=== PATIENT | male | born 1980 | race Two or more races ===

== ENCOUNTER 2023-08-17 14:52 | Emergency (ER) | payer MEDICAID, OTHER ==
[~2023-08-17] VITALS: Ht 182.9 cm; Wt 87.7 kg
[2023-08-17 15:53] VITALS: BP 145/90; PULSE 95; RESP 18; TEMP 98; O2SAT 99
[2023-08-17] MEDS ORDERED: HYDR-4798 PO (15:59)
== END 2023-08-17 16:06 | disposition home or self-care (01) ==
LOC: ER 14:52
DX: M25.512 Pain in left shoulder (principal); Z76.0 Encounter for issue of repeat prescription; Z79.899 Other long term (current) drug therapy

== ENCOUNTER 2024-04-07 11:29 | Emergency (ER) | payer MEDICAID ==
[~2024-04-07] VITALS: Ht 182.9 cm; Wt 78.9 kg
[~2024-04-07 11:29] MED LIST: HYDR-4798 PO
[2024-04-07 15:12] VITALS: BP 145/99; PULSE 104; RESP 16; TEMP 98.4; O2SAT 97
[2024-04-07] MEDS ORDERED: HYDR-4798 PO (15:15)
--- NOTE | 2024-04-07 15:15 | ED.PDOC ---
Musculoskeletal HPI Comments 43 year old male presents for left shoulder pain Currently takes norco prescribed by PCP Ran out. Requesting refill Next apt: Apr first week Chief Complaint: Upper Extremity Time Seen by MD: 14:41 Primary Care Provider: [facility] Allergies: Coded Allergies: NO KNOWN ALLERGIES (Unverified , 08/17/23) Home Meds Active Scripts Hydrocodone-Acetaminophen (Hydrocodone Bitartrate/AC 10-325 mg) 1 Tab Tab, 1 TAB PO QHSP PRN, #12 TAB Prov:JENNIFER SEARS 08/17/23 Mode of Arrival: Ambulatory Past Medical History Surgical History: Denies all surgeries Family History Family History: Unknown Social History Smoker: Non-Smoker Alcohol: Denies ETOH Use Drugs: Denies Drug Use Lives In: Home X-Ray, Labs, Meds, VS Vital Signs Date Time Temp Pulse Resp B/P (MAP) Pulse Ox O2 Delivery O2 Flow Rate FiO2 04/07/24 11:55 98.4 104 16 145/99 (114) 97 X-Ray, Labs, Meds, VS Comment OSITO ARTHUR Sold: 10/09/2023 Filled: 10/09/2023 HYDROCODONE BITARTRATE, ACETAMINOPHEN Refill 0 of 0 10-325 MG TAB Days: 30 Qty: 60 Daily: 20.0 Total: 600.0 MADELINE MYERS GEORGE: [id number] [id number] Pharmacy #: [id number] Serialized Rx: NOT REPORTED Pharmacy Rx: [id number] Time of 1ST Reevaluation: 15:13 Reevaluation 1ST: Improved Departure 1 Departure Time of Disposition: 15:13 Impression: Primary Impression: Chronic shoulder pain Qualified Codes: M25.512 - Pain in left shoulder; G89.29 - Other chronic pain Disposition: 01 HOME / SELF CARE / HOMELESS Condition: Stable e-Prescriptions Hydrocodone-Acetaminophen (Hydrocodone Bitartrate/AC 10-325 mg) 1 Tab Tab 1 TAB PO Q8HP PRN for 4 Days, #12 TAB 0 Refills Prov: KYREE URBINA SCHEDULING ADMINISTRATOR 04/07/24 KYREE URBINA SCHEDULING ADMINISTRATOR Apr 07, 2024 15:15
[2024-04-07] MEDS: HYDROcodone-ACET 10/325MG TAB PO ONE (15:29)
== END 2024-04-07 15:30 | disposition home or self-care (01) ==
LOC: ER 11:29
DX: M25.512 Pain in left shoulder (principal); G89.29 Other chronic pain; Z76.0 Encounter for issue of repeat prescription